=== PATIENT | female | born 1970 | race Caucasian/White ===

== ENCOUNTER 2016-08-04 00:25 | Emergency (ER) | payer OTHER ==
[2016-08-04 01:09] LABS: HEMOGLOBIN 12.2 gm/dl (12.3-15.3); RED BLOOD COUNT 3.75 M/UL (4.00-5.10); WHITE BLOOD COUNT 6.1 K/UL (4.5-11.0)
[2016-09-03] MEDS ORDERED: SODIUM BICARBO325 MG PO (13:04)
[2016-09-03] MEDS ORDERED: NORVASC 5 MG TAB5 MG PO (13:04)
[2016-09-03] MEDS ORDERED: CARVEDILOL25 MG PO (13:05)
[2016-09-03] MEDS ORDERED: VISTARIL 25 MG25 MG PO (13:05)
[2016-09-03] MEDS ORDERED: PERCOCET 5-3251 EACH PO (14:44)
== END 2016-08-04 05:00 | disposition home or self-care (01) ==
LOC: ER1 00:25
PROVIDERS: Family Medicine
DX: N18.6 End stage renal disease (principal); F17.200 Nicotine dependence, unspecified, uncomplicated; Z88.2 Allergy status to sulfonamides; Z79.4 Long term (current) use of insulin; Z79.899 Other long term (current) drug therapy; Z88.5 Allergy status to narcotic agent; Z88.8 Allergy status to other drugs, medicaments and biological substances
CPT/HCPCS: 36415; 71020; 80053; 82550; 82553; 83874; 83880; 84484; 85025; 93005; 94664; 99285

== ENCOUNTER → 2016-09-03 | Day surgery (SDC) | payer MEDICARE, OTHER ==
[~2016-09-03] MED LIST: CARVEDILOL25 MG PO; NORVASC 5 MG TAB5 MG PO; PERCOCET 5-3251 EACH PO; SODIUM BICARBO325 MG PO; VISTARIL 25 MG25 MG PO
[2016-09-03 12:47] LABS: HEMOGLOBIN 9.9 gm/dl (12.3-15.3); RED BLOOD COUNT 3.14 M/UL (4.00-5.10); WHITE BLOOD COUNT 7.1 K/UL (4.5-11.0)
== END | disposition home or self-care (01) ==
LOC: OR 11:29
PROVIDERS: Obstetrics & Gynecology
PROC: 0U5B8ZZ Destruction of Endometrium, Via Natural or Artificial Opening Endoscopic (ICD-10-PCS; principal; 2016-09-03 11:30)
DX: N92.0 Excessive and frequent menstruation with regular cycle (principal); N18.6 End stage renal disease; I12.9 Hypertensive chronic kidney disease with stage 1 through stage 4 chronic kidney disease, or unspecified chronic kidney disease; E21.3 Hyperparathyroidism, unspecified; F31.9 Bipolar disorder, unspecified; E66.9 Obesity, unspecified; J44.9 Chronic obstructive pulmonary disease, unspecified; G43.909 Migraine, unspecified, not intractable, without status migrainosus; F17.210 Nicotine dependence, cigarettes, uncomplicated; Z88.5 Allergy status to narcotic agent; Z88.6 Allergy status to analgesic agent; Z88.2 Allergy status to sulfonamides; Z88.8 Allergy status to other drugs, medicaments and biological substances; Z90.49 Acquired absence of other specified parts of digestive tract; Z98.51 Tubal ligation status; Z86.73 Personal history of transient ischemic attack (TIA), and cerebral infarction without residual deficits
CPT/HCPCS: 36415; 80048; 81001; 85025; J2250; J2405; J2795; J7030; J7120; Q0163

== ENCOUNTER 2016-09-11 14:40 | Emergency (ER) | payer OTHER ==
[2016-09-11 15:40] LABS: HEMOGLOBIN 9.8 gm/dl (12.3-15.3); RED BLOOD COUNT 3.17 M/UL (4.00-5.10); WHITE BLOOD COUNT 4.5 K/UL (4.5-11.0)
== END 2016-09-11 16:45 | disposition home or self-care (01) ==
LOC: ER1 14:40
PROVIDERS: Preventive Medicine Occupational Medicine
DX: E87.1 Hypo-osmolality and hyponatremia (principal); N18.9 Chronic kidney disease, unspecified; F17.210 Nicotine dependence, cigarettes, uncomplicated; Z99.2 Dependence on renal dialysis; Z88.2 Allergy status to sulfonamides; Z88.5 Allergy status to narcotic agent; Z88.8 Allergy status to other drugs, medicaments and biological substances
CPT/HCPCS: 36415; 80048; 81001; 85025; 99283